=== PATIENT | male | born 1975 | race Caucasian/White ===

== ENCOUNTER → 2022-12-14 08:53 | Outpatient (BNVA) | payer SELFPAY | PROVIDERS: Family Provider Internal Medicine; Visit Provider Podiatrist Foot & Ankle Surgery | DX: G57.92 Unspecified mononeuropathy of left lower limb; G62.9 Polyneuropathy, unspecified; M79.671 Pain in right foot | CPT/HCPCS: 73630 ==

== ENCOUNTER 2023-05-28 21:44 | Emergency (ER) | payer SELFPAY ==
[2023-05-28 21:53] VITALS: BP 161/97; PULSE 68; RESP 16; TEMP 36.9; O2SAT 99
--- NOTE | 2023-05-28 22:19 | CTR_ITS ---
PROCEDURE INFORMATION: Exam: CT Abdomen And Pelvis Without Contrast Exam date and time: 05/28/2023 10:32 PM Age: 48 years old Clinical indication: Nausea and vomiting; Abdominal pain; Right; Patient HX: RT flank pain with n/v; Additional info: R flank pain, vomiting, dark urine, back pain/flank pain- right TECHNIQUE: Imaging protocol: Computed tomography of the abdomen and pelvis without contrast. Radiation optimization: All CT scans at this facility use at least one of these dose optimization techniques: automated exposure control; mA and/or kV adjustment per patient size (includes targeted exams where dose is matched to clinical indication); or iterative reconstruction. COMPARISON: No relevant prior studies available. RADIATION DOSE METRICS: Total DLP (mGy-cm): 1062.17 FINDINGS: Lungs: Clear. Liver: Unremarkable unenhanced appearance. Gallbladder and bile ducts: No calcified stones. Unremarkable unenhanced appearance. Pancreas: Unremarkable unenhanced appearance. Spleen: Splenic granulomas. Adrenal glands: Unremarkable. Kidneys and ureters: 3 mm stone in the right distal ureter. Right renal collecting system is minimally dilated with mild parapelvic/proximal periureteral stranding. Stomach and bowel: No bowel obstruction. Appendix: No evidence of appendicitis. Intraperitoneal space: No free air. No significant fluid collection. Vasculature: Mild scattered atherosclerosis. No aortic aneurysm. Lymph nodes: No enlarged lymph nodes. Urinary bladder: Bladder is decompressed and not well evaluated. Reproductive: Unremarkable unenhanced appearance as visualized. Bones/joints: No acute fracture. Chronic bilateral L5 pars defects with grade 1 anterolisthesis of L5 on S1. Degenerative changes. Soft tissues: Small right fat containing inguinal hernia. CT/CT kidney stone [id number] IMPRESSION: 3 mm right distal ureteral stone with minimal dilation of the right renal collecting system.
--- NOTE | 2023-05-28 22:19 | W.ED.BACK ---
Documented by User: THERON Duvall 05/29/23 00:57 HPI - Back Pain/Injury General: Chief Complaint: Back Pain/Injury Stated Complaint: groin pain Time Seen by Provider: 05/28/23 21:47 Source: patient Mode of arrival: wheelchair Limitations: no limitations History of Present Illness: Patient presents emergency department today for evaluation treatment of right back, right flank, and right groin pain. Patient had onset earlier today with significant worsening through the evening. Patient noticed issues with his urine stream during this time. He has had dribbling and difficulty having normal urinary voids. He has also noticed very dark brown urine. Patient has been vomiting due to his pain. He denies any previous history of kidney stones. Review of Systems General: Reports: 10 or more systems reviewed and unremarkable except in HPI and below Physical Exam Const: COMMON NORMALS: patient oriented x3 and alert OTHER: Patient is in extreme duress. He is diaphoretic, pale. HENMT: COMMON NORMALS: normocephalic, atraumatic, hearing grossly normal bilaterally and moist oral mucous membranes HEAD & SCALP: normocephalic and atraumatic Eye: COMMON NORMALS: Equal, round and reactive pupils present, EOMs intact bilaterally and conjunctivae normal CONJUNCTIVA: Yes conjunctivae normal PUPIL: Yes Equal, round and reactive pupils present Neck/C-Spine: COMMON NORMALS: no JVD Lymph: LYMPHATIC: no lymphadenopathy noted Resp: COMMON NORMALS: normal respiratory effort, No retractions and No use of accessory muscles Cardio: COMMON NORMALS: no JVD and regular rate RATE: regular rate Back/Pelvis: OTHER: Patient has pain below the right CVA region. Extremity: COMMON NORMALS: normal to inspection, full ROM and capillary refill normal Neuro: COMMON NORMALS: patient oriented x3 SENSORIUM/ORIENTATION: Yes alert Psych: COMMON NORMALS: mental status grossly normal, cooperative, normal affect, speech normal and activity/motor behavior normal SPEECH: Yes normal speech Course Vital Signs: Vital signs: Vital Signs Temperature 98.4 F 05/28/23 21:53 Pulse Rate 68 05/28/23 21:53 Respiratory Rate 16 05/28/23 21:53 Blood Pressure 128/81 05/29/23 01:11 Pulse Oximetry 100 05/29/23 01:11 Oxygen Delivery Me thod Room Air 05/28/23 21:53 MDM - Back Pain/Injury Medical Decision Making Patient presents in quite a bit of distress due to pain. He is actively vomiting in the room. Given the patient's complaints and presenting symptoms he most likely has a kidney stone and pain medicine and antinausea medicine were ordered quickly. CT renal stone and lab work was obtained. Patient was found to have a 3 mm right distal ureter stone with minimal dilatation of the ascending ureter. Patient had an acute decrease in GFR and urinalysis revealed quite a lot of findings-indicating patient is most likely dehydrated. Patient was treated with fluids, pain medicine, Toradol, Flomax, and a first dose of antibiotic while here in the emergency department. Continue treatment was sent to the pharmacy on his behalf to be picked up and continued in the morning. A referral to urology was also initiated on his behalf as this was a first kidney stone for him. Patient is told he needs to increase his clear fluid intake from here on out. He may also still be tender and sore for couple of days. Patient was given return precautions should he have any change or worsening in his condition. Patient verbalizes understanding and agreement to treatment plan. Differential Diagnosis Likely renal colic and thoracic back pain; Unlikely lumbar radiculopathy, sciatica, strain of lumbar region or pyelonephritis Labs 05/28/23 22:05 05/28/23 22:05 Radiology Impressions Abdomen/Pelvis CT 05/28/23 22:19 IMPRESSION: 3 mm right distal ureteral stone with minimal dilation of the right renal collecting system. Laboratory Results WBC 12.25 10^3/uL (3.29-11.43) H 05/28/23 22:05 RBC 4.80 10^6/uL (3.85-5.65) 05/28/23 22:05 Hgb 14.00 g/dL (11.27-16.99) 05/28/23 22:05 Hct 40.5 % (37-53) 05/28/23 22:05 MCV 84.4 fl (82-101) 05/28/23 22:05 MCH 29.2 pg (27-33) 05/28/23 22:05 MCHC 34.6 g/dL (30-55) 05/28/23 22:05 RDW 12.3 % (12.1-15.1) 05/28/23 22:05 Plt Count 342 10^3/cmm (157-399) 05/28/23 22:05 MPV 9.5 fL (7.4-10.4) 05/28/23 22:05 Neut % (Auto) 64.5 % 05/28/23 22:05 Lymph % (Auto) 28.3 % 05/28/23 22:05 Murray % (Auto) 5.3 % 05/28/23 22:05 Eos % (Auto) 1.2 % 05/28/23 22:05 Baso % (Auto) 0.4 % 05/28/23 22:05 Neut # (Auto) 7.89 10^3/uL (1.8-7.7) H 05/28/23 22:05 Lymph # (Auto) 3.5 10^3/uL (0.8-4.8) 05/28/23 22:05 Murray # (Auto) 0.7 10^3/uL (0.2-0.9) 05/28/23 22:05 Eos # (Auto) 0.2 10^3/uL (0.0-0.8) 05/28/23 22:05 Baso # (Auto) 0.1 10^3/uL (0.0-0.1) 05/28/23 22:05 Nucleated RBC % (auto) 0 % 05/28/23 22:05 Nucleated RBCs # 0.0 /100WBC 05/28/23 22:05 Sodium 134 mmol/L (136-145) L 05/28/23 22:05 Potassium 3.9 mmol/L (3.5-5.1) 05/28/23 22:05 Chloride 100 mmol/L (98-107) 05/28/23 22:05 Carbon Dioxide 23 mmol/L (22-29) 05/28/23 22:05 Anion Gap 14.9 (5-19) 05/28/23 22:05 BUN 14 mg/dL (6-20) 05/28/23 22:05 Creatinine 1.0 mg/dL (0.7-1.2) 05/28/23 22:05 GFR Calculation 79.8 mL/min (90-130) L 05/28/23 22:05 Glucose 116 mg/dL (65-115) H 05/28/23 22:05 Calculated Osmolality 279 mOsm/kg (285-295) L 05/28/23 22:05 Calcium 9.9 mg/dL (8.5-10.5) 05/28/23 22:05 Total Bilirubin 0.5 mg/dL (0.15-1.2) 05/28/23 22:05 AST 18 U/L (0-40) 05/28/23 22:05 ALT 18 U/L (0-41) 05/28/23 22:05 Alkaline Phosphatase 58 U/L (40-130) 05/28/23 22:05 Total Protein 7.9 g/dL (6.6-8.7) 05/28/23 22:05 Albumin 4.5 g/dL (3.5-5.2) 05/28/23 22:05 Globulin 3.4 g/dL (1.3-4.6) 05/28/23 22:05 Urine Color Janine (Yellow) 05/29/23 00:13 Urine Appearance Cloudy (CLEAR) A 05/29/23 00:13 Urine pH 5 (5-7) 05/29/23 00:13 Ur Specific Ethel 1.025 (1.005-1.030) 05/29/23 00:13 Urine Protein 1+ (Negative) H 05/29/23 00:13 Urine Glucose (UA) Norm (Normal) 05/29/23 00:13 Urine Ketones 2+ (Negative) H 05/29/23 00:13 Urine Blood 3+ (Negative) H 05/29/23 00:13 Urine Nitrate Negative (Negative) 05/29/23 00:13 Urine Bilirubin 1+ (Negative) H 05/29/23 00:13 Urine Urobilinogen 4 mg/dL (Negative) H 05/29/23 00:13 Ur Leukocyte Esterase Trace (Negative) H 05/29/23 00:13 Urine RBC 25-40 /hpf (0-2) H 05/29/23 00:13 Urine WBC 5-10 /hpf (0-5) H 05/29/23 00:13 Ur Squamous Epith Cells 0-4 /hpf (0-5) H 05/29/23 00:13 Amorphous Sediment 1+ /hpf 05/29/23 00:13 Urine Bacteria 1+ /hpf (NONE) H 05/29/23 00:13 Hyaline Casts 0-4 /lpf H 05/29/23 00:13 Urine Mucus 2+ /hpf 05/29/23 00:13 All radiology interpretation(s) finalized by discharge Discharge Plan Discharge Patient Disposition: Home Clinical Impression: Right ureteral calculus Condition: Stable Prescriptions: New ondansetron 4 mg tablet,disintegrating 4 mg PO Q8H 5 Days Qty: 15 0RF Flomax 0.4 mg capsule 0.4 mg PO DAILY Qty: 5 0RF Macrobid 100 mg capsule 100 mg PO BID 7 Days Qty: 14 0RF Rx Instructions: must administer with a meal/food ketorolac 10 mg tablet 10 mg PO Q6H PRN (Reason: pain) 5 Days Qty: 20 0RF Percocet 7.5-325 mg tablet 1 tab PO Q6H PRN (Reason: pain) Qty: 10 0RF No Action meloxicam 15 mg tablet 15 mg PO DAILY gabapentin 300 mg capsule 300 mg PO DAILY Qty: 30 2RF Rx Instructions: Take one capsule by mouth at night before bed Discharge Orders: Discharge ED (Routine); Ordered 05/29/23 Ordered By: Rea Tena Referrals: Job Meredith DO [Family Provider] - Discharge Diet: Usual diet Discharge Activity: Increase activity as tolerated Patient Instructions: Kidney Stones (ED) Activity Restrictions/Additional Instructions: Your evaluation today was conclusive for an active ureteral stone-this is a stone that has left the kidney and passed down into the ureter. The stone is approximately 3 mm in size and has almost fully passed through your urinary system. You have just a short bit to go until it is able to get into the bladder and then be passed with your next urinary void. It is extremely important that you increase your clear fluid intake from here on out. You are very dry in both your lab work and urine. We are providing you medication to help complete the passing of this kidney stone and to help with the discomfort which is residual for the next couple of days. I did place a referral for follow-up to urology as this is your first kidney stone. If you continue to have any issues with your urine stream or flank discomfort you can follow-up with their office. However, if you spike a fever, have return of severe flank pain not easily resolved with your medications or by urinating you should return to the emergency department. Coding Level of Care Code ED Protective Services Officer for Chg Fwd Documented by User: Checo Tang DO 05/29/23 01:12 HPI - Back Pain/Injury General: Chief Complaint: Back Pain/Injury Stated Complaint: groin pain Time Seen by Provider: 05/28/23 21:47 Course Vital Signs: Vital signs: Vital Signs Temperature 98.4 F 05/28/23 21:53 Pulse Rate 68 05/28/23 21:53 Respiratory Rate 16 05/28/23 21:53 Blood Pressure 128/81 05/29/23 01:11 Pulse Oximetry 100 05/29/23 01:11 Oxygen Delivery Me thod Room Air 05/28/23 21:53 MDM - Back Pain/Injury Medical Decision Making Patient presents in quite a bit of distress due to pain. He is actively vomiting in the room. Given the patient's complaints and presenting symptoms he most likely has a kidney stone and pain medicine and antinausea medicine were ordered quickly. CT renal stone and lab work was obtained. Patient was found to have a 3 mm right distal ureter stone with minimal dilatation of the ascending ureter. Patient had an acute decrease in GFR and urinalysis revealed quite a lot of findings-indicating patient is most likely dehydrated. Patient was treated with fluids, pain medicine, Toradol, Flomax, and a first dose of antibiotic while here in the emergency department. Continue treatment was sent to the pharmacy on his behalf to be picked up and continued in the morning. A referral to urology was also initiated on his behalf as this was a first kidney stone for him. Patient is told he needs to increase his clear fluid intake from here on out. He may also still be tender and sore for couple of days. Patient was given return precautions should he have any change or worsening in his condition. Patient verbalizes understanding and agreement to treatment plan. This patient was originally seen by Mrs. Darinel PA-C.? I agree with her history, evaluation, and treatment. Labs 05/28/23 22:05 05/28/23 22:05 Radiology Impressions Abdomen/Pelvis CT 05/28/23 22:19 IMPRESSION: 3 mm right distal ureteral stone with minimal dilation of the right renal collecting system. Laboratory Results WBC 12.25 10^3/uL (3.29-11.43) H 05/28/23 22:05 RBC 4.80 10^6/uL (3.85-5.65) 05/28/23 22:05 Hgb 14.00 g/dL (11.27-16.99) 05/28/23 22:05 Hct 40.5 % (37-53) 05/28/23 22:05 MCV 84.4 fl (82-101) 05/28/23 22:05 MCH 29.2 pg (27-33) 05/28/23 22:05 MCHC 34.6 g/dL (30-55) 05/28/23 22:05 RDW 12.3 % (12.1-15.1) 05/28/23 22:05 Plt Count 342 10^3/cmm (157-399) 05/28/23 22:05 MPV 9.5 fL (7.4-10.4) 05/28/23 22:05 Neut % (Auto) 64.5 % 05/28/23 22:05 Lymph % (Auto) 28.3 % 05/28/23 22:05 Murray % (Auto) 5.3 % 05/28/23 22:05 Eos % (Auto) 1.2 % 05/28/23 22:05 Baso % (Auto) 0.4 % 05/28/23 22:05 Neut # (Auto) 7.89 10^3/uL (1.8-7.7) H 05/28/23 22:05 Lymph # (Auto) 3.5 10^3/uL (0.8-4.8) 05/28/23 22:05 Murray # (Auto) 0.7 10^3/uL (0.2-0.9) 05/28/23 22:05 Eos # (Auto) 0.2 10^3/uL (0.0-0.8) 05/28/23 22:05 Baso # (Auto) 0.1 10^3/uL (0.0-0.1) 05/28/23 22:05 Nucleated RBC % (auto) 0 % 01/13/24 22:05 Nucleated RBCs # 0.0 /100WBC 05/28/23 22:05 Sodium 134 mmol/L (136-145) L 05/28/23 22:05 Potassium 3.9 mmol/L (3.5-5.1) 05/28/23 22:05 Chloride 100 mmol/L (98-107) 05/28/23 22:05 Carbon Dioxide 23 mmol/L (22-29) 05/28/23 22:05 Anion Gap 14.9 (5-19) 05/28/23 22:05 BUN 14 mg/dL (6-20) 05/28/23 22:05 Creatinine 1.0 mg/dL (0.7-1.2) 05/28/23 22:05 GFR Calculation 79.8 mL/min (90-130) L 05/28/23 22:05 Glucose 116 mg/dL (65-115) H 05/28/23 22:05 Calculated Osmolality 279 mOsm/kg (285-295) L 05/28/23 22:05 Calcium 9.9 mg/dL (8.5-10.5) 05/28/23 22:05 Total Bilirubin 0.5 mg/dL (0.15-1.2) 05/28/23 22:05 AST 18 U/L (0-40) 05/28/23 22:05 ALT 18 U/L (0-41) 05/28/23 22:05 Alkaline Phosphatase 58 U/L (40-130) 05/28/23 22:05 Total Protein 7.9 g/dL (6.6-8.7) 05/28/23 22:05 Albumin 4.5 g/dL (3.5-5.2) 05/28/23 22:05 Globulin 3.4 g/dL (1.3-4.6) 05/28/23 22:05 Urine Color Janine (Yellow) 05/29/23 00:13 Urine Appearance Cloudy (CLEAR) A 05/29/23 00:13 Urine pH 5 (5-7) 05/29/23 00:13 Ur Specific Ethel 1.025 (1.005-1.030) 05/29/23 00:13 Urine Protein 1+ (Negative) H 05/29/23 00:13 Urine Glucose (UA) Norm (Normal) 05/29/23 00:13 Urine Ketones 2+ (Negative) H 05/29/23 00:13 Urine Blood 3+ (Negative) H 05/29/23 00:13 Urine Nitrate Negative (Negative) 05/29/23 00:13 Urine Bilirubin 1+ (Negative) H 05/29/23 00:13 Urine Urobilinogen 4 mg/dL (Negative) H 05/29/23 00:13 Ur Leukocyte Esterase Trace (Negative) H 05/29/23 00:13 Urine RBC 25-40 /hpf (0-2) H 05/29/23 00:13 Urine WBC 5-10 /hpf (0-5) H 05/29/23 00:13 Ur Squamous Epith Cells 0-4 /hpf (0-5) H 05/29/23 00:13 Amorphous Sediment 1+ /hpf 05/29/23 00:13 Urine Bacteria 1+ /hpf (NONE) H 05/29/23 00:13 Hyaline Casts 0-4 /lpf H 05/29/23 00:13 Urine Mucus 2+ /hpf 05/29/23 00:13 Discharge Plan Discharge Patient Disposition: Home Clinical Impression: Right ureteral calculus Condition: Stable Prescriptions: New ondansetron 4 mg tablet,disintegrating 4 mg PO Q8H 5 Days Qty: 15 0RF Flomax 0.4 mg capsule 0.4 mg PO DAILY Qty: 5 0RF Macrobid 100 mg capsule 100 mg PO BID 7 Days Qty: 14 0RF Rx Instructions: must administer with a meal/food ketorolac 10 mg tablet 10 mg PO Q6H PRN (Reason: pain) 5 Days Qty: 20 0RF Percocet 7.5-325 mg tablet 1 tab PO Q6H PRN (Reason: pain) Qty: 10 0RF No Action meloxicam 15 mg tablet 15 mg PO DAILY gabapentin 300 mg capsule 300 mg PO DAILY Qty: 30 2RF Rx Instructions: Take one capsule by mouth at night before bed Discharge Orders: Discharge ED (Routine); Ordered 05/29/23 Ordered By: Rea Tena Referrals: Job Meredith DO [Family Provider] - Discharge Diet: Usual diet Discharge Activity: Increase activity as tolerated Patient Instructions: Kidney Stones (ED) Activity Restrictions/Additional Instructions: Your evaluation today was conclusive for an active ureteral stone-this is a stone that has left the kidney and passed down into the ureter. The stone is approximately 3 mm in size and has almost fully passed through your urinary system. You have just a short bit to go until it is able to get into the bladder and then be passed with your next urinary void. It is extremely important that you increase your clear fluid intake from here on out. You are very dry in both your lab work and urine. We are providing you medication to help complete the passing of this kidney stone and to help with the discomfort which is residual for the next couple of days. I did place a referral for follow-up to urology as this is your first kidney stone. If you continue to have any issues with your urine stream or flank discomfort you can follow-up with their office. However, if you spike a fever, have return of severe flank pain not easily resolved with your medications or by urinating you should return to the emergency department. Coding Level of Care Code ED Protective Services Officer for Alex Hearn
[2023-05-28] MEDS: ondansetron 2 mg/ML SDV 2 mL 4 MG IVP (22:22)
[2023-05-28] MEDS: HYDROmorphone 1 mg/mL INJ 1 mL IVP (22:22)
[2023-05-28 22:24] LABS: Basophils # 0.1 10^3/uL (0.0-0.1); Basophils % 0.4 %; Eosinophils # 0.2 10^3/uL (0.0-0.8); Eosinophils % 1.2 %; Hematocrit 40.5 % (37-53); Lymphocytes # 3.5 10^3/uL (0.8-4.8); Lymphocytes % 28.3 %; Mean Corpuscular HGB Conc 34.6 g/dL (30-55); Mean Corpuscular Hemoglobin 29.2 pg (27-33); Mean Corpuscular Volume 84.4 fl (82-101); Mean Platelet Volume 9.5 fL (7.4-10.4); Monocytes # 0.7 10^3/uL (0.2-0.9); Monocytes % 5.3 %; Neutrophils # 7.89 10^3/uL (1.8-7.7); Neutrophils % 64.5 %; Nucleated Red Blood Cells % 0 %; Platelet Count 342 10^3/cmm (157-399); Red Cell Distribution Width 12.3 % (12.1-15.1); White Blood Count 12.25 10^3/uL (3.29-11.43)
[2023-05-28] MEDS: sodium chloride 0.9% 1,000 ML 999 ML IV (22:28)
[2023-05-28] MEDS: ketorolac 30 mg/mL INJ IVP (22:28)
[2023-05-28 22:34] LABS: Alanine Aminotransferase 18 U/L (0-41); Albumin Level 4.5 g/dL (3.5-5.2); Alkaline Phosphatase 58 U/L (40-130); Anion Gap 14.9 (5-19); Aspartate Amino Transferase 18 U/L (0-40); Blood Urea Nitrogen 14 mg/dL (6-20); Calcium 9.9 mg/dL (8.5-10.5); Carbon Dioxide 23 mmol/L (22-29); Chloride 100 mmol/L (98-107); Creatinine Clr Calc Pharmacy 119.7707; Globulin 3.4 g/dL (1.3-4.6); Glomerular Filtration Rate 79.8 mL/min (90-130); Glucose 116 mg/dL (65-115); Osmolality Calculated 279 mOsm/kg (285-295); Potassium 3.9 mmol/L (3.5-5.1); Sodium 134 mmol/L (136-145); Total Bilirubin 0.5 mg/dL (0.15-1.2); Total Protein 7.9 g/dL (6.6-8.7)
[2023-05-28] MEDS: tamsulosin 0.4 mg Capsule PO (23:29)
[2023-05-29 00:33] LABS: Glucose Urine UA Norm (Normal); Ketones Urine 2+ (Negative); Protein Urine 1+ (Negative); Specific Gravity, Urine 1.025 (1.005-1.030); Urine Appearance Cloudy (CLEAR); Urine Color Amber (Yellow); pH Urine 5 (5-7)
[2023-05-29 00:34] LABS: Add Urine Microscopic? YES; Bilirubin Urine 1+ (Negative); Blood Urine 3+ (Negative); Leukocyte Esterase Urine Trace (Negative); Nitrate Urine Negative (Negative); RBC Urine 25-40 /hpf (0-2); Squamous Epithelial Cell Urine 0-4 /hpf (0-5); Urobilinogen Urine 4 mg/dL (Negative)
[2023-05-29 00:35] LABS: Add Urine Culture? Yes; Amorphous Sediment Urine 1+ /hpf; Bacteria Urine 1+ /hpf; Hyaline Casts Urine 0-4 /lpf; Mucus Urine 2+ /hpf
[2023-05-29] MEDS: nitrofurantoin SR (BID) 100 mg Capsule PO (01:09)
[2023-05-29] MEDS: oxyCODONE-APAP 5-325 mg Tablet 2 TAB PO (01:09)
[2023-05-29 01:11] VITALS: BP 128/81; O2SAT 100
--- NOTE | 2023-06-03 09:27 | DCPLANNER ---
I spoke to patient and he would like referral sent to [facility]. I faxed paperwork on 06/03/23 at 0928 am. Faxed to: [phone] and [phone]
== END 2023-05-29 01:12 | disposition home or self-care (01) ==
PROVIDERS: Emergency Provider Physician Assistant; Family Provider Internal Medicine
DX: N20.1 Calculus of ureter (principal)
CPT/HCPCS: 74176; 80053; 81001; 85025; 87086; 96374; 96375; 99285; J1170; J1885; J2405; J7030